=== PATIENT | male | born 1995 | race Two or more races ===

== ENCOUNTER 2016-04-08 15:43 | Emergency (ER) | payer SELFPAY ==
[2016-04-08 16:08] VITALS: BP 146/85; PULSE 86; RESP 20; TEMP 98.2; O2SAT 97
[2016-04-08] MEDS ORDERED: IBUPROFEN 600 MG TAB PO ONE (16:35)
--- NOTE | 2016-04-08 16:39 | EDPHY ---
H & P Time Seen by Provider: 04/08/16 16:29 HPI/ROS: CHIEF COMPLAINT: Left index finger injury HISTORY OF PRESENT ILLNESS: 20-year-old male presents emergency department complaining of left index finger pain after falling off a horse yesterday. Patient is [id number], he denies numbness or tingling in this hand, reports pain and swelling and stiffness in his index finger. He denies head strike, no neck pain, no wrist or elbow pain, no other complaints. Smoking Status: Never smoked Physical Exam: GEN: Awake, alert, oriented, no acute distress RESP: nl resp effort MSK: Left index finger with decreased range of motion at PIP joint, tenderness to palpation to MCP and PIP joint, mild swelling and ecchymosis, sensation intact to light touch, cap refill less than 2 seconds SKIN: No break in skin Constitutional: Initial Vital Signs Temperature (C) 36.8 C 04/08/16 16:04 Heart Rate 86 04/08/16 16:04 Respiratory Rate 20 04/08/16 16:04 Blood Pressure 146/85 H 04/08/16 16:04 O2 Sat (%) 97 04/08/16 16:04 O2 Delivery Mode Room Air Allergies/Adverse Reactions: No Known Allergies Allergy (Verified 04/08/16 16:04) Home Medications: Medication Instructions Recorded NK [No Known Home Meds] 04/08/16 MDM/Departure - MDM Diagnostics: Left index finger x-ray independently reviewed by me- Left index finger proximal phalanx fracture Procedures: A finger splint was applied. After application of the splint, I returned and re-examined the patient. The splint was adequately immobilizing the joint. The patients circulation and sensation were intact distal to the splint. - Depart Disposition: Home, Routine, Self-Care Clinical Impression: Fracture of proximal phalanx of left index finger Qualifiers: Encounter type: initial encounter Fracture type: closed Fracture alignment: nondisplaced Qualifier Code: (S62.641A) Nondisplaced fracture of proximal phalanx of left index finger, initial encounter for closed fracture Condition: Good Instructions: Finger Fracture (ED) Additional Instructions: Keep splint in place until your follow-up appointment. Rest, ice, elevate, take 600 mg of ibuprofen every 8 hours with food for 3-5 days. Follow up with the hand doctor at 1st available appointment. Referrals: [facility] [Outside] - As per Instructions Colette Ford MD [Medical Doctor] - As per Instructions (Hand doctor on-call)
--- NOTE | 2016-04-08 17:47 | DX ---
Left second finger, 3 views at 1536 hours History: Fall off horse yesterday. Pain. Findings: Soft tissue swelling. Oblique nondisplaced fracture of the left second proximal phalanx thr ough the mid diaphyseal shaft. No definite extension to the articular surfaces. Impression: Nondisplaced oblique fracture of the left second proximal phalanx.
== END 2016-04-08 17:00 | disposition home or self-care (01) ==
DX: S62.641A Nondisplaced fracture of proximal phalanx of left index finger, initial encounter for closed fracture (principal); V80.010A Animal-rider injured by fall from or being thrown from horse in noncollision accident, initial encounter; Y92.410 Unspecified street and highway as the place of occurrence of the external cause; Y99.8 Other external cause status; Y93.52 Activity, horseback riding
CPT/HCPCS: L3925

== ENCOUNTER 2017-02-06 16:33 | Emergency (ER) | payer SELFPAY ==
[2017-02-06 16:38] VITALS: BP 150/86; PULSE 72; RESP 16; TEMP 98.4; O2SAT 96
--- NOTE | 2017-02-06 16:55 | EDPHY ---
H & P Smoking Status: Never smoked Time Seen by Provider: 02/06/17 16:42 HPI/ROS: CHIEF COMPLAINT: Left rib pain HISTORY OF PRESENT ILLNESS: 21-year-old male presents to the emergency department with left posterior rib pain that began 2 weeks ago. Patient denies any known trauma or injury. He does work in [employer] however he does not recall lifting anything or having any trauma associated with work. Patient does report however that it is worse if he tries to move around. It is been the same spot whole time in the left posterior rib area. He denies pleuritic chest pain. He has not feel short of breath. No URI symptoms. No abdominal pain. Appetite has been normal. No history of kidney stones. He states last night the pain became much more severe. He has never had this pain in the past. No symptoms on the right side. No radiation of pain. No pain in his groin. REVIEW OF SYSTEMS: Constitutional: No fever, no chills. Eyes: No double or blurry vision. ENT: No sore throat. Respiratory: No cough, no shortness of breath. Cardiac: No chest pain. Gastrointestinal: No abdominal pain, vomiting or diarrhea. Genitourinary: No dysuria. Musculoskeletal: As above. No other neck pain. Skin: No rashes. Neurological: No headache. (Amy Graf) Past Medical/Surgical History: Negative (Amy Graf) Social History: Single (Amy Graf) Physical Exam: General Appearance: Alert, no distress. Afebrile. No apparent distress. Appears comfortable. Eyes: Pupils equal and round. Extraocular motions are all intact. ENT: Mouth: Mucous membranes moist. Respiratory: No wheezing, rhonchi, or rales, lungs are clear to auscultation. Cardiovascular: Regular rate and rhythm. Gastrointestinal: Abdomen is soft and nontender, no masses, no rebound or guarding, bowel sounds normal. Neurological: Alert and oriented x 3, cranial nerves II through XII grossly intact Skin: Warm and dry, no rashes. Musculoskeletal: Nontender to palpate along the cervical, thoracic or lumbar spine. Neck is supple. Pain is worse with movement especially with laterally bending to the left as well as hyperextension of the lumbar spine. He also has pain with flexion of the left knee toward his chest. Extremities: Full range of motion and no peripheral edema. Psychiatric: Patient is oriented X 3, there is no agitation. (Amy Graf) Constitutional: Initial Vital Signs Temperature (C) 36.9 C 02/06/17 16:36 Heart Rate 72 02/06/17 16:36 Respiratory Rate 16 02/06/17 16:36 Blood Pressure 150/86 H 02/06/17 16:36 O2 Sat (%) 96 02/06/17 16:36 O2 Delivery Mode Room Air Allergies/Adverse Reactions: No Known Allergies Allergy (Verified 02/06/17 16:36) Home Medications: Medication Instructions Recorded Tylenol 02/06/17 Medical Decision Making ED Course/Re-evaluation: 21-year-old male presents to the emergency department with left-sided back pain. His pain is worse with movement as well as palpation. His urine is negative. No blood or protein. I think this is unlikely to be a kidney stone. He has had pain for the last 2 weeks. His pain is worse with movement. I think this is likely musculoskeletal in nature. He has not taken anything for the pain. She was given ibuprofen 600 mg p.o.. Patient is comfortable being discharged home. Again I do not think imaging studies are indicated. I doubt kidney stone or kidney infection. Patient was encouraged to follow up with primary care provider he this week. The patient feels that he can do his normal job. He does not think that he needs any restrictions. I do think this patient has a pulmonary embolism. He has no calf pain or swelling. No recent travel. He has no pleuritic chest pain. He has not feel short of breath. He is 96% on room air. His pain is reproducible mentally with palpation but also with movement. (Amy Graf) Differential Diagnosis: Back pain including but not limited to muscular pain, herniated disc, spine fracture, kidney stone, intra-abdominal causes and urinary tract infection. ( Amy Graf) Other Provider: The patient was evaluated and managed by the [employer]. My co- signature indicates that I have reviewed this chart and I agree with the findings and plan of care as documented. I am the secondary supervising physician. (Ina España) - Data Points Medications Given: Discontinued Medications Ibuprofen (Motrin) 600 mg PO EDNOW ONE Stop: 12/06/17 16:59 Last Admin: 02/06/17 17:06 Dose: 600 mg Departure - Departure Disposition: Home, Routine, Self-Care Clinical Impression: Back pain Condition: Good Instructions: Low Back Strain (ED), Back Pain (ED) Additional Instructions: Ibuprofen 600 mg every 8 hr as needed for pain. Activity as tolerated. Referrals: [facility],. [Clinic] - 1-2 days without fail
[2017-02-06] MEDS ORDERED: IBUPROFEN 600 MG TAB PO ONE (16:58)
== END 2017-02-06 17:40 | disposition home or self-care (01) ==
DX: M54.9 Dorsalgia, unspecified (principal)

== ENCOUNTER 2017-09-05 02:08 | Emergency (ER) | payer SELFPAY ==
[2017-09-05] MEDS ORDERED: predniSONE 20 MG TAB PO ONE (04:16)
--- NOTE | 2017-09-05 04:18 | EDPHY ---
H & P Stated Complaint: Hives - poss allergic reaction, unknown allergen Time Seen by Provider: 09/05/17 04:09 HPI/ROS: HPI The patient presents with itchy rash which has been present for the last 2 days though getting progressively worse. He noticed that it has spread over the last 2 days throughout his arms and legs. It is not painful. He denies any new lotions, soaps, medications, foods, exposures. He has no prior history of similar. He does not have any shortness of breath, nausea, vomiting, dizziness , difficulty swallowing.. REVIEW OF SYSTEMS Constitutional: No fever, no chills. Eyes: No discharge. ENT: No sore throat. Cardiovascular: No chest pain, no palpitations. Respiratory: No cough, no shortness of breath. Gastrointestinal: No abdominal pain, no vomiting. Genitourinary: No hematuria. Musculoskeletal: No back pain. Skin: No rashes. Neurological: No headache. PMHx: Healthy Soc Hx: Here with family PHYSICAL General Appearance: Alert, no distress Eyes: Pupils equal and round no pallor or injection ENT, Mouth: Mucous membranes moist, posterior pharynx is unremarkable Respiratory: There are no retractions, lungs are clear to auscultation Cardiovascular: Regular rate and rhythm Gastrointestinal: Abdomen is soft and non-tender, no masses, bowel sounds normal Neurological: A&O, moves all extremities Skin: Warm and dry, diffuse urticarial rash on extremities and trunk Musculoskeletal: Neck is supple non tender Extremities: symmetrical, full range of motion Psychiatric: Patient is oriented X 3, there is no agitation Source: Patient Exam Limitations: No limitations - Personal History Current Tetanus/Diphtheria Vaccine: Unsure Current Tetanus Diphtheria and Acellular Pertussis (TDAP): Unsure - Medical/Surgical History Hx Asthma: No Hx Chronic Respiratory Disease: No Hx Diabetes: No Hx Cardiac Disease: No Hx Renal Disease: No Hx Cirrhosis: No Hx Alcoholism: No Hx HIV/AIDS: No Hx Splenectomy or Spleen Trauma: No Other PMH: denies - Social History Smoking Status: Never smoked Constitutional: Initial Vital Signs Temperature (C) 36.3 C 09/05/17 02:13 Heart Rate 68 09/05/17 02:13 Respiratory Rate 16 09/05/17 02:13 Blood Pressure 136/94 H 09/05/17 02:13 O2 Sat (%) 100 09/05/17 02:13 O2 Delivery Mode Room Air Allergies/Adverse Reactions: No Known Allergies Allergy (Verified 02/06/17 16:36) Home Medications: Medication Instructions Recorded predniSONE [Prednisone] 40 mg PO DAILY 4 Days tablet 09/05/17 Medical Decision Making Differential Diagnosis: 21-year-old male with 2 days of progressive itchy rash throughout his arms, legs , torso. Differential diagnosis includes urticaria, anaphylaxis, less likely contact dermatitis. I have instructed him to take Benadryl. I will prescribe him a prescription for prednisone. I do not know what exactly caused his rash, I have advised him to follow [facility] if he continues to have the rash. - Data Points Medications Given: Discontinued Medications Prednisone (Prednisone) 60 mg PO EDNOW ONE Stop: 09/05/17 04:17 Last Admin: 09/05/17 04:22 Dose: 60 mg Departure - Departure Disposition: Home, Routine, Self-Care Clinical Impression: Urticaria Condition: Good Instructions: Urticaria (ED) Additional Instructions: Please return to the emergency department if your worse in any way. Please follow-up with [facility] if you continue to have hives in 2 days. Referrals: [facility],. [Clinic] - As per Instructions Prescriptions: predniSONE [Prednisone] 40 mg PO DAILY 4 Days tablet
[2017-09-05 04:29] VITALS: BP 127/80
== END 2017-09-05 04:31 | disposition home or self-care (01) ==
DX: L50.9 Urticaria, unspecified (principal)
CPT/HCPCS: J7512